=== PATIENT | male | born 1960 | race African-American/Black ===

== ENCOUNTER 2021-04-25 14:00 | Emergency (ER) | payer MEDICARE, MEDICAID ==
[~2021-04-25] VITALS: Ht 172.7 cm; Wt 90.9 kg
[~2021-04-25 14:00] MED LIST: ASPI-1198 PO; GLIP10TA9 PO; [UNRECOGNIZED DRUG - REMARK]
[2021-04-25 14:47] VITALS: BP 145/71
[2021-04-25] MEDS ORDERED: HYDROCODONE/ACETAMINOPHEN 5-325 MG TABLET PO ONE (15:15)
== END 2021-04-25 15:33 | disposition home or self-care (01) ==
LOC: EMS 14:11
DX: G89.29 Other chronic pain (principal); F41.9 Anxiety disorder, unspecified; F32.9 Major depressive disorder, single episode, unspecified; E78.00 Pure hypercholesterolemia, unspecified; F20.9 Schizophrenia, unspecified; I10 Essential (primary) hypertension; F17.210 Nicotine dependence, cigarettes, uncomplicated
CPT/HCPCS: 99283

== ENCOUNTER 2021-08-06 07:37 | Emergency (ER) | payer MEDICAID, MEDICARE, OTHER ==
[~2021-08-06] VITALS: Ht 172.7 cm; Wt 100.0 kg
[2021-08-06] MEDS ORDERED: GABA-1216 PO (07:54)
[2021-08-06] MEDS ORDERED: TIZA-211 PO (07:54)
[2021-08-06] MEDS ORDERED: LISI-893 PO (07:54)
[2021-08-06] MEDS ORDERED: HYDR-4723 PO (07:54)
[2021-08-06] MEDS ORDERED: PANT40TA54 PO (11:23)
[2021-08-06] MEDS ORDERED: ATOR10TA69 PO (11:23)
[2021-08-06] MEDS ORDERED: METF-1211 PO (11:24)
[2021-08-06] MEDS: TiZANidine HCL 4 MG TABLET PO ONE (11:34)
[2021-08-06] MEDS: HYDROCODONE/ACETAMINOPHEN 5-325 MG TABLET PO ONE (11:34)
[2021-08-06] MEDS: GABAPENTIN 100 MG CAPSULE PO ONE (11:35)
[2021-08-06 11:44] VITALS: BP 136/78
== END 2021-08-06 12:15 | disposition home or self-care (01) ==
LOC: EMS 07:39
DX: M54.2 Cervicalgia (principal); M54.9 Dorsalgia, unspecified; G89.29 Other chronic pain; F41.9 Anxiety disorder, unspecified; M19.90 Unspecified osteoarthritis, unspecified site; F32.A Depression, unspecified; E78.00 Pure hypercholesterolemia, unspecified; I10 Essential (primary) hypertension; F20.9 Schizophrenia, unspecified; F17.210 Nicotine dependence, cigarettes, uncomplicated; Z96.659 Presence of unspecified artificial knee joint; Z98.890 Other specified postprocedural states
CPT/HCPCS: 99284; Z7502; Z7610